=== PATIENT | female | born 1975 | race Hispanic/Latino ===

== ENCOUNTER 2018-05-03 11:32 | Emergency (ER) | payer OTHER ==
[~2018-05-03] VITALS: Ht 165.1 cm; Wt 127.3 kg
[~2018-05-03 11:32] MED LIST: DOCUSATE CAL240 MG PO; DULCOLAX10 MG RE; FERR SULFATE325 MG PO; FERROUS SULF325 M2 PO; IBUPROFEN600 MG PO; KEFLEX500 MG PO; LORTAB 5 OR; LORTAB 7.5-3251 TAB PO; MIRALAX3350 N1 PO; PRE-NATAL PO
[2018-05-03] MEDS ORDERED: IBUPROFEN600 MG PO (13:20)
[2018-05-03 13:35] VITALS: BP 133/83
== END 2018-05-03 13:35 | disposition home or self-care (01) ==
LOC: ED 11:32
DX: S93.402A Sprain of unspecified ligament of left ankle, initial encounter (principal); M17.11 Unilateral primary osteoarthritis, right knee; W01.0XXA Fall on same level from slipping, tripping and stumbling without subsequent striking against object, initial encounter; Y92.009 Unspecified place in unspecified non-institutional (private) residence as the place of occurrence of the external cause